=== PATIENT | female | born 1990 | race Caucasian/White ===

== ENCOUNTER 2016-09-17 19:48 | Emergency (ER) | payer SELFPAY ==
[~2016-09-17] VITALS: Ht 160 cm; Wt 63.5 kg
[2016-09-17 20:00] VITALS: BP 120/75
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
--- NOTE | 2016-09-18 08:35 | RAD ---
Left foot, 3 views, 09/17/2016: History: Injury, foot pain No fracture or dislocation is identified. The soft tissues are unremarkable. IMPRESSION: No acute left foot abnormality is detected.
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
== END 2016-09-17 21:01 | disposition home or self-care (01) ==
LOC: ER 19:48
DX: S63.502A Unspecified sprain of left wrist, initial encounter (principal); S90.32XA Contusion of left foot, initial encounter; Z91.018 Allergy to other foods; Y08.89XA Assault by other specified means, initial encounter; Y93.89 Activity, other specified; Y92.89 Other specified places as the place of occurrence of the external cause; Y99.8 Other external cause status
CPT/HCPCS: 29125; 73110; 73130; 73630; 81025; 99284-25

== ENCOUNTER 2016-12-08 20:48 | Emergency (ER) | payer SELFPAY ==
[~2016-12-08] VITALS: Ht 160 cm; Wt 59.0 kg
[2016-12-08 20:55] VITALS: BP 113/74
[2016-12-08] MEDS ORDERED: NAPR500T PO (21:09)
[2016-12-08] MEDS ORDERED: ORPH100T PO (21:09)
--- NOTE | 2016-12-08 21:11 | PHYS DOC ---
Past Medical History Past Medical History: No Pertinent History Additional Past Medical Histor: headaches, SYNCOPE X 1 Past Surgical History: No Surgical History Alcohol Use: Occasionally Drug Use: None Adult General Chief Complaint Chief Complaint: Neck Pain HPI HPI Patient is a 26 year old female presents to the emergency department with complaints of left posterior neck pain for 2 days. No known injury. She states she's had a history of neck pain in the past but this feels different. She does state that she is using ice to the affected area which does seem to relieve the discomfort. She has no headache, no blurred vision, no double vision, no loss of vision. She denies fever. She denies chest pain, abdominal pain, nausea, vomiting, diarrhea. She denies myalgias or arthralgias. Review of Systems Review of Systems Constitutional: Denies fever or chills [] Eyes: Denies change in visual acuity, redness, or eye pain [] HENT: Denies nasal congestion or sore throat [] Respiratory: Denies cough or shortness of breath [] Cardiovascular: No additional information not addressed in HPI [] GI: Denies abdominal pain, nausea, vomiting, bloody stools or diarrhea [] : Denies dysuria or hematuria [] Musculoskeletal: Neck pain Integument: Denies rash or skin lesions [] Neurologic: Denies headache, focal weakness or sensory changes [] Endocrine: Denies polyuria or polydipsia [] Allergies Allergies Allergies Coded Allergies Type Severity Reaction Last Updated Verified pumpkin Allergy Severe tongue swelling 03/15/15 Yes Physical Exam Physical Exam Constitutional: Well developed, well nourished, no acute distress, non-toxic appearance. [] HENT: Normocephalic, atraumatic, bilateral external ears normal, oropharynx moist, no oral exudates, nose normal. [] Eyes: PERRLA, EOMI, conjunctiva normal, no discharge. [] Neck: Normal range of motion, mild tenderness left paracervical. No midline tenderness. Cardiovascular:Heart rate regular rhythm, no murmur [] Lungs & Thorax: Bilateral breath sounds clear to auscultation [] Skin: Warm, dry, no erythema, no rash. [] Back: No tenderness, no CVA tenderness. [] Extremities: No tenderness, no cyanosis, no clubbing, ROM intact, no edema. [] Neurologic: Alert and oriented X 3, normal motor function, normal sensory function, no focal deficits noted. [] Psychologic: Affect normal, judgement normal, mood normal. [] EKG EKG [] Radiology/Procedures Radiology/Procedures [] Course & Med Decision Making Course & Med Decision Making Pertinent Labs and Imaging studies reviewed. (See chart for details) [] Dragon Disclaimer Dragon Disclaimer This electronic medical record was generated, in whole or in part, using a voice recognition dictation system. Departure Departure Impression: Primary Impression: Cervical muscle strain Disposition: HOME, SELF-CARE Condition: STABLE Referrals: NO PCP (PCP) Patient Instructions: Cervical Strain and Sprain with Rehab-Sports[facility] Additional Instructions: Ice alternating with heat to the affected area as needed. Return to the emergency Department for new symptoms or concerns or worsening of current symptoms. Scripts Orphenadrine Citrate (ORPHENADRINE CITRATE) 100 Mg Tablet.er 1 TAB PO BID Y for neck pain, #20 TAB 1 Refill Prov: PORTIA MASSEY APRN 12/08/16 Naproxen (NAPROSYN) 500 Mg Tablet 1 TAB PO BID Y for PAIN, #20 TAB 1 Refill Prov: PORTIA MASSEY APRN 12/08/16 PORTIA MASSEY APRN Dec 08, 2016 21:11
[2016-12-08] MEDS ORDERED: ORPHENADRINE CITRATE 60 MG/2 ML VIAL. IM ONE (21:30)
[2016-12-08] MEDS ORDERED: KETOROLAC TROMETHAMINE 60 MG/2 ML INJ. IM ONE (21:30)
== END 2016-12-08 21:39 | disposition home or self-care (01) ==
LOC: ER 20:48
DX: S16.1XXA Strain of muscle, fascia and tendon at neck level, initial encounter (principal); Z91.018 Allergy to other foods; X58.XXXA Exposure to other specified factors, initial encounter; Y93.89 Activity, other specified; Y92.89 Other specified places as the place of occurrence of the external cause; Y99.8 Other external cause status
CPT/HCPCS: 96372; 99284; J1885; J2360

== ENCOUNTER 2017-12-20 16:34 | Emergency (ER) | payer SELFPAY ==
[2017-12-20 16:57] LABS: URINE HCG POC HCG NEGATIVE (Negative)
[2017-12-20 17:26] LABS: BILIRUBIN,URINE NEGATIVE (NEG); CLARITY,URINE CLEAR; COLOR,URINE YELLOW; GLUCOSE,URINE NEGATIVE (NEG); NITRITE,URINE NEGATIVE (NEG); PROTEIN,URINE NEGATIVE (NEG-TRACE); UROBILINOGEN,URINE 0.2 mg/dL (0.2 mg/dL)
[2017-12-20 17:47] LABS: BACTERIA,URINE FEW /HPF (0-FEW); SQUAMOUS EPITHELIAL CELL,UR MANY /LPF; WBC,URINE 20-40 /HPF (0-4)
[2017-12-20 18:02] LABS: ADD MAN DIFF? NO
[2017-12-20 18:10] LABS: BASO % 0 % (0-3); EOS # 0.1 x10^3/uL (0.0-0.7); EOS % 1 % (0-3); HEMATOCRIT 40.3 % (36.0-47.0); HEMOGLOBIN 14.1 g/dL (12.0-15.5); LYMPH # 1.4 x10^3/uL (1.0-4.8); LYMPH % 16 % (24-48); MEAN CORPUSCULAR HEMOGLOBIN 32 pg (25-35); MEAN CORPUSCULAR HGB CONC 35 g/dL (31-37); MEAN CORPUSCULAR VOLUME 90 fL (79-100); MONO # 0.9 x10^3/uL (0.0-1.1); MONO % 10 % (0-9); NEUT # 6.4 x10^3uL (1.8-7.7); NEUT % 73 % (31-73); PLATELET COUNT 231 x10^3/uL (140-400); RED BLOOD COUNT 4.47 x10^6/uL (3.50-5.40); RED CELL DISTRIBUTION WIDTH 12.3 % (11.5-14.5); WHITE BLOOD COUNT 8.8 x10^3/uL (4.0-11.0)
[2017-12-20 18:13] LABS: ANION GAP 5 (6-14); BLOOD UREA NITROGEN 13 mg/dL (7-20); BUN/CREATININE RATIO 14 (6-20); CALCIUM 8.7 mg/dL (8.5-10.1); CARBON DIOXIDE 28 mmol/L (21-32); CHLORIDE 104 mmol/L (98-107); CREATININE 0.9 mg/dL (0.6-1.0); GFR 76.3; GLUCOSE 89 mg/dL (70-99); POTASSIUM 3.8 mmol/L (3.5-5.1); SODIUM 137 mmol/L (136-145)
[2017-12-20 18:20] LABS: ALBUMIN 3.6 g/dL (3.4-5.0); ALBUMIN/GLOBULIN RATIO 0.9 (1.0-1.7); ALK PHOS 104 U/L (46-116); ALT (SGPT) 27 U/L (14-59); AST (SGOT) 18 U/L (15-37); LIPASE 86 U/L (73-393); TOTAL BILIRUBIN 0.4 mg/dL (0.2-1.0); TOTAL PROTEIN 7.6 g/dL (6.4-8.2)
[2017-12-21] MEDS ORDERED: LACTOBACILLUS RHAMNOSUS GG 1 CAPSULE. PO (09:00)
[2017-12-21] MEDS ORDERED: cefTRIAXone IV Push 1 GM VIAL. IVP (20:00)
== END 2017-12-20 20:54 | disposition home or self-care (01) ==
LOC: ER 20:54
DX: N12 Tubulo-interstitial nephritis, not specified as acute or chronic (principal); R05 Cough; R19.7 Diarrhea, unspecified; Z91.018 Allergy to other foods
CPT/HCPCS: 36415; 71046; 74176; 80053; 81001; 81025; 83690; 85025; 87086; 96365; 99285-25; J0690

== ENCOUNTER 2019-02-12 15:47 | Emergency (ER) | payer SELFPAY ==
[~2019-02-12] VITALS: Ht 157.5 cm; Wt 61.2 kg
[~2019-02-12 15:47] MED LIST: CIPR500T94 PO; NAPR-683 PO; ORPH100T PO
[2019-02-12 16:35] VITALS: BP 114/65
--- NOTE | 2019-02-12 16:58 | PHYS DOC ---
Past Medical History Past Medical History: No Pertinent History Additional Past Medical Histor: headaches, SYNCOPE X 1 Past Surgical History: No Surgical History Alcohol Use: Occasionally Drug Use: Marijuana Adult General Chief Complaint Chief Complaint: LACERATION/AVULSION HPI HPI Patient is a 29 year old female who presents with right foot laceration, patient states yesterday she was at [facility] and she stepped on something with no shoes. Review of Systems Review of Systems Constitutional: Denies fever or chills [] Musculoskeletal: Denies back pain or joint pain [] Integument: Reports right foot laceration Neurologic: Denies headache, focal weakness or sensory changes [] All other systems were reviewed and found to be within normal limits, except as documented in this note. Current Medications Current Medications Current Medications Medications (Trade) Dose Ordered Sig/Shira Start Time Stop Time Status Last Admin Dose Admin Diphtheria/ Tetanus/Acell Pertussis (Boostrix) 0.5 ml ONCE ONCE 02/12/19 17:00 02/12/19 17:01 Allergies Allergies Allergies Coded Allergies Type Severity Reaction Last Updated Verified pumpkin Allergy Severe tongue swelling 03/15/15 Yes Physical Exam Physical Exam Constitutional: Well developed, well nourished, no acute distress, non-toxic appearance. [] Skin: Warm, dry, the arc of the right foot with a laceration approximately 2 cm long. There is no tendon involvement. Full range of motion to the right foot and toes. +2 right pedal pulse. Cap refill less than 2 seconds the right toes. Back: No tenderness, no CVA tenderness. [] Extremities: No tenderness, no cyanosis, no clubbing, ROM intact, no edema. [] Neurologic: Alert and oriented X 3, normal motor function, normal sensory function, no focal deficits noted. [] Psychologic: Affect normal, judgement normal, mood normal. [] Current Patient Data Vital Signs Vital Signs Date Time Temp Pulse Resp B/P (MAP) Pulse Ox O2 Delivery O2 Flow Rate FiO2 02/12/19 16:35 98.3 57 16 114/65 (81) 100 Room Air 98.3 EKG EKG [] Radiology/Procedures Radiology/Procedures [] Course & Med Decision Making Course & Med Decision Making Pertinent Labs and Imaging studies reviewed. (See chart for details) This is a 29-year-old female patient who presents to the ED today with right foot laceration after stepping on something at the [place]. Laceration occurred yesterday. Tetanus updated. Discharged on Cipro. Follow-up with PCP in 1-2 weeks. Wound care instructions and return precautions provided. Marisol Disclaimer Marisol Disclaimer This electronic medical record was generated, in whole or in part, using a voice recognition dictation system. Departure Departure Impression: Primary Impression: Laceration of right foot Disposition: HOME, SELF-CARE Condition: STABLE Referrals: NO PCP (PCP) Follow-up with your doctor in 1-2 weeks Patient Instructions: Laceration Care, Adult Additional Instructions: You have right foot laceration, keep the area clean and dry. You can apply Neosporin to the area twice a day. Take the prescribed antibiotics until completed. Follow-up with your doctor in 1-2 weeks. Please return to the emergency room at any point wound condition worsen or you have any new concerning symptoms. Scripts Ciprofloxacin Hcl (CIPRO) 500 Mg Tablet 1 TAB PO BID, #14 TAB Prov: SANDRA ALANIS APRN 02/12/19 Problem Qualifiers Primary Impression: Laceration of right foot Encounter type: initial encounter Qualified Codes: S91.311A - Laceration without foreign body, right foot, initial encounter SANDRA ALANIS OFFICE ASSOCIATE Feb 12, 2019 16:58
[2019-02-12] MEDS ORDERED: DIPHTH,PERTUSS(ACELL),TET TOX 0.5 ML DISP.SYRIN. VAX IM ONE (17:00)
[2019-02-12] MEDS ORDERED: CIPR500T94 PO (17:01)
== END 2019-02-12 17:12 | disposition home or self-care (01) ==
LOC: ER 15:47
DX: S91.311A Laceration without foreign body, right foot, initial encounter (principal); Z91.018 Allergy to other foods; Y28.8XXA Contact with other sharp object, undetermined intent, initial encounter; Y93.89 Activity, other specified; Y92.89 Other specified places as the place of occurrence of the external cause; Y99.8 Other external cause status
CPT/HCPCS: 90471; 90715; 99283